=== PATIENT | male | born 2000 | race Caucasian/White ===

== ENCOUNTER 2022-07-17 14:21 | Emergency (ER) | payer OTHER, SELFPAY ==
--- NOTE | ~2022-07-17 | XR_ITS ---
XR ankle RT min 3V DATE: 07/17/2022 14:58 INDICATION: Patient tripped. Hyperextension injury on 07/17/2022. Anterior pain. TECHNIQUE: 4 views COMPARISON: None FINDINGS: No fracture or dislocation of the ankle or disruption of the ankle mortise. No significant soft tissue swelling is noted. IMPRESSION: Negative Reviewed, dictated and finalized at location B. IMPRESSION: Negative
[2022-07-17 14:30] VITALS: BP 114/71; PULSE 87; RESP 18; TEMP 36.7; O2SAT 99
--- NOTE | 2022-07-17 14:42 | ED.LOWEXIN ---
HPI - Extremity Injury (Lower) General Chief Complaint: Extremity Injury, Lower Stated Complaint: Right Ankle Injury Time Seen by Provider: 07/17/22 14:30 Source: patient and RN notes reviewed History of Present Illness HPI Narrative: Patient is a 21-year-old male who presents the urgent care with complaints of right ankle pain. Patient states that 1 hour ago he tripped over his own shoelace and hyperextended the ankle. Patient has not done anything [id number] for his pain prior to arrival. No other acute complaints. No acute distress noted. Patient aware of the plan of care. Some parts of this dictation were generated by voice recognition software and may contain typographical and/or grammatical inaccuracies. Review of Systems Review of Systems: CONSTITUTIONAL: Denies fever, chills, or sweats. EYES: Denies visual changes, redness, or discharge. ENT: Denies rhinorrhea, congestion, sore throat, or otalgia. CARDIOVASCULAR: Denies chest pain, palpitations, or edema. RESPIRATORY: Denies cough or dyspnea. GASTROINTESTINAL: Denies abdominal pain, nausea, vomiting, or diarrhea. GENITOURINARY: Denies dysuria or hematuria. SKIN: Denies rash or itching. MUSCULOSKELETAL: Reports of right ankle pain NEUROLOGIC: Denies headache, numbness, or weakness. All other systems reviewed are negative, except as documented in HPI. PMFSH Comments At the time of my signature, I reviewed and agree with the nursing past medical, surgical, social, and family history. There is no relevant family history pertinent to the patient complaint. Exam Narrative: GENERAL: This is a well-nourished, well-developed patient, in no apparent distress. HEAD: normocephalic, atraumatic. EYES: PERRL. Sclera clear/white. Vision is grossly intact. EARS: External ears normal NOSE: External nose normal with no obvious nasal discharge, nares without redness, no rhinorrhea. THROAT: Mucous membranes moist NECK: Neck supple SKIN: warm, intact with no suspicious lesions or rash, good texture and turgor. NEURO: awake, alert, and oriented to person, place and time. There were no obvious focal neurologic abnormalities. EXTREMITIES: No obvious deformity, ecchymosis, erythema or edema noted to the right malleolus. Mild ecchymosis and edema noted to the medial right foot with mild tenderness. Positive strong right pedal pulse with capillary refill less than 2 seconds. Range of motion not tested due to pain. Pain exacerbated on weightbearing with Course Course Level of Care: Express Care Visit Vital Signs Vital signs: Vital Signs Temperature 98.1 F 07/17/22 14:30 Pulse Rate 87 07/17/22 14:30 Respiratory Rate 18 07/17/22 14:30 Blood Pressure 114/71 07/17/22 14:30 Pulse Oximetry 99 07/17/22 14:30 Oxygen Delivery Room Air 07/17/22 14:30 Temperature 98.1 F 07/17/22 14:30 Pulse Rate 87 07/17/22 14:30 Respiratory Rate 18 07/17/22 14:30 Blood Pressure 114/71 07/17/22 14:30 Pulse Oximetry 99 07/17/22 14:30 Oxygen Delivery Room Air 07/17/22 14:30 Reviewed MDM - Extremity Injury (Lower) MDM Narrative Medical decision making narrative: Reviewed x-ray results with the patient. He is aware that x-ray is negative for fracture or deformity. You likely have a ligament injury which will take time to heal. Advised the patient to wear a supportive shoe and an Perico wrap for comfort and support. Avoid any strenuous activity for the next 3 to 5 days or until activity as tolerated as normal. Keep the foot elevated and use ice/Tylenol/ibuprofen as needed for pain or discomfort. Follow-up with your PCP within 2 to 5 days or for worsening symptoms or failure to improve. Differential Diagnosis Differential diagnosis: Likely ankle sprain and strain, acute internal derangement of knee, fracture of femur, fracture of hip, puncture wound of foot and ankle fracture Imaging Data Radiologist's impression: [facility] [place] [address] [facility] [place],
== END 2022-07-17 15:06 | disposition home or self-care (01) ==
PROVIDERS: Emergency Provider Nurse Practitioner Family
DX: S93.601A Unspecified sprain of right foot, initial encounter (principal); X50.9XXA Other and unspecified overexertion or strenuous movements or postures, initial encounter
CPT/HCPCS: 73610; 99213; G0463